=== PATIENT | female | born 1945 | race Caucasian/White ===

== ENCOUNTER → 2017-04-01 | Outpatient (CLI) | payer MEDICARE, MEDICAID | END | disposition home or self-care (01) | LOC: RADPV 09:22 | PROVIDERS: ATTEND Family Medicine | DX: Z13.820 Encounter for screening for osteoporosis (principal); M81.0 Age-related osteoporosis without current pathological fracture | CPT/HCPCS: 77080 ==

== ENCOUNTER 2019-07-19 11:07 | Inpatient (IN) | payer MEDICARE, MEDICAID ==
[~2019-07-19] VITALS: Ht 144.8 cm; Wt 70.0 kg
[2019-07-19] MEDS ORDERED: CARV12 PO (11:37)
[2019-07-19] MEDS ORDERED: CHOL100018 PO (11:37)
[2019-07-19] MEDS ORDERED: SIMV-259 PO (11:37)
[2019-07-19] MEDS ORDERED: AMIN30LI28 PO (11:37)
[2019-07-19] MEDS ORDERED: ASCO500 PO (11:37)
[2019-07-19] MEDS ORDERED: GARL200T PO (11:37)
[2019-07-19] MEDS ORDERED: HYDR25TA PO (11:37)
[2019-07-19] MEDS ORDERED: DOCU-342 PO (11:37)
[2019-07-19] MEDS ORDERED: MULT-1239 PO (11:37)
[2019-07-19] MEDS ORDERED: ZINC1CAP2 PO (11:37)
[2019-07-19] MEDS ORDERED: ALEN70TA10 PO (11:37)
[2019-07-19] MEDS ORDERED: AUD NEB (11:37)
[2019-07-19] MEDS ORDERED: POLY90PO PO (11:37)
[2019-07-19 11:52] LABS: GLUCOSE,POINT OF CARE 192 MG/DL (70-110)
[2019-07-19 12:04] LABS: HEMATOCRIT 46.5 % (36-46); HEMOGLOBIN 15.5 g/dL (12.0-16.0); MEAN CORPUSCULAR HEMOGLOBIN 29.9 pg (26.0-34.0); MEAN CORPUSCULAR HGB CONC 33.4 G/dL (31.0-37.0); MEAN CORPUSCULAR VOLUME 89 fL (80-100); PLATELET COUNT (AUTO) 161 K/uL (150-450); RED CELL DISTRIBUTION WIDTH 16.4 % (11.5-14.5)
[2019-07-19 12:11] LABS: CALCIUM, TOTAL 10.2 mg/dL (8.8-10.5); CREATININE 1.08 mg/dL (0.60-1.30)
[2019-07-19 12:19] LABS: ALBUMIN 2.8 g/dL (3.4-5.0); BILIRUBIN,TOTAL 1.3 mg/dL (0.1-1.0); TOTAL PROTEIN, SERUM 6.9 g/dL (6.4-8.2)
[2019-07-19 12:21] LABS: LACTIC ACID 1.8 mmol/L (0.4-2.0)
[2019-07-19 12:30] LABS: BAND NEUTROPHILS % (MANUAL) 14 % (0-5); BASOPHILS % (MANUAL) 1 % (0-2); LYMPHOCYTES % (MANUAL) 5 % (22-44); MONOCYTES % (MANUAL) 6 % (2-9); REACTIVE LYMPHOCYTES 1 % (0-0); SEGMENTED NEUTROPHILS % 73 % (40-70)
[2019-07-19] MEDS ORDERED: SODIUM CHLORIDE 0.9% 1,000 ML IV ONE ×2 (13:11→13:15)
[2019-07-19] MEDS ORDERED: MORPHINE SULFATE 2 MG/ML SYRINGE IVP ONE (13:30)
[2019-07-19] MEDS ORDERED: MORPHINE SULFATE 10 MG/ML SYRINGE IVP ONE (13:30)
[2019-07-19] MEDS ORDERED: ONDANSETRON HCL 4 MG/2 ML VIAL IVP ONE (13:30)
[2019-07-19] MEDS ORDERED: PIPERACILLIN/TAZO 3.375 GM/D5W 50 ML IV ONE (14:15)
[2019-07-19] MEDS ORDERED: POTASSIUM CHL 10 MEQ/WATER 50 ML IV ONE (14:15)
[2019-07-19] MEDS ORDERED: IOVERSOL 350 MG/ML 100 ML VIAL ONE (14:48)
[2019-07-19] MEDS ORDERED: SODIUM CHLORIDE 0.9% 100 ML ONE (14:48)
[2019-07-19 16:47] LABS: APPEARANCE,URINE TURBID (CLEAR); BILIRUBIN,URINE NEGATIVE (NEGATIVE); GLUCOSE, URINE (UA) NEGATIVE (NEGATIVE); KETONES,URINE NEGATIVE (NEGATIVE); LEUKOCYTE ESTERASE ,URINE LARGE (NEGATIVE); NITRATE,URINE POSITIVE (NEGATIVE); OCCULT BLOOD,URINE LARGE (NEGATIVE); PH,URINE 8.5 (5.0-8.0); PROTEIN,URINE SEE CONFIRM (NEGATIVE); UROBILINOGEN,URINE 0.2 mg/dL (<=1.0)
[2019-07-19 17:12] LABS: SULFOSALICYLIC ACID,URINE 4+ (Negative)
[2019-07-19 17:14] LABS: BACTERIA,URINE Many /HPF (None Seen); SQUAMOUS EPITHELIAL CELL,UR Many /LPF (None Seen); WBC,URINE 51-100 /HPF (0-5)
[2019-07-19 17:15] LABS: TRIPLE PHOSPHATE CRYSTAL,UR Many /LPF (None Seen)
[2019-07-19] MEDS ORDERED: ACETAMINOPHEN 325 MG TABLET PO PRN ×2 (17:30→22:15)
[2019-07-19] MEDS ORDERED: ONDANSETRON HCL 4 MG/2 ML VIAL IVP PRN ×2 (17:30→22:15)
[2019-07-19] MEDS ORDERED: FUROSEMIDE 40 MG/4 ML VIAL IVP ONE (17:30)
[2019-07-19] MEDS ORDERED: 0.9% SODIUM CHLORIDE 10 ML SYRINGE IVP PRN (17:30)
[2019-07-19 19:33] VITALS: BP 115/79
[2019-07-19] MEDS ORDERED: MORPHINE SULFATE 2 MG/ML SYRINGE IVP PRN (22:15)
[2019-07-19] MEDS ORDERED: HYDROCODONE/ACETAMINOPHEN 5-325 MG TABLET PO PRN (22:15)
[2019-07-19] MEDS ORDERED: ZOLPIDEM TARTRATE 5 MG TABLET PO PRN (22:15)
[2019-07-19] MEDS ORDERED: BISACODYL 10 MG RECTAL RECTAL SUPPOSITORY PR PRN (22:15)
[2019-07-19] MEDS ORDERED: MAGNESIUM HYDROXIDE SUSPENSION 30 ML UDCUP PO PRN (22:15)
[2019-07-19] MEDS ORDERED: SODIUM CHLORIDE 0.9% 250 ML IV ONE (23:09)
[2019-07-19] MEDS: CefTRIAXone 1 GM/DEXTROSE 50 ML IV SCH (23:18)
[2019-07-19] MEDS: HEPARIN SODIUM,PORCINE 5,000 UNITS/ML VIAL SQ SCH (23:19)
[2019-07-19 23:33] VITALS: BP 128/89
[2019-07-20] MEDS ORDERED: ALBUTEROL SULFATE 2.5 MG/0.5 ML NEB SOLUTION NEB SCH
[2019-07-20] MEDS ORDERED: IPRATROPIUM BROMIDE 0.5 MG/2.5 ML NEB SOLUTION NEB SCH
[2019-07-20 04:07] VITALS: BP 93/56
[2019-07-20 06:23] LABS: BASOPHILS % (AUTO) 0.2 % (0.0-2.0); EOSINOPHILS % (AUTO) 0.2 % (1.0-6.0); HEMATOCRIT 40.8 % (36-46); HEMOGLOBIN 13.2 g/dL (12.0-16.0); LYMPHOCYTES # (AUTO) 0.7 K/uL (1.0-4.8); LYMPHOCYTES % (AUTO) 5.1 % (22.0-44.0); MEAN CORPUSCULAR HEMOGLOBIN 29.3 pg (26.0-34.0); MEAN CORPUSCULAR HGB CONC 32.2 G/dL (31.0-37.0); MEAN CORPUSCULAR VOLUME 91 fL (80-100); MONOCYTES # (AUTO) 1.3 K/uL (0.1-1.0); NEUTROPHILS # (AUTO) 10.7 K/uL (1.8-7.7); NEUTROPHILS % (AUTO) 84.5 % (40.0-70.0); PLATELET COUNT (AUTO) 148 K/uL (150-450); RED BLOOD CELL COUNT(AUTO) 4.49 MIL/uL (4.00-5.20)
[2019-07-20 06:47] LABS: ALBUMIN 2.3 g/dL (3.4-5.0); BILIRUBIN,TOTAL 0.4 mg/dL (0.1-1.0); CALCIUM, TOTAL 9.6 mg/dL (8.8-10.5); CREATININE 1.15 mg/dL (0.60-1.30); POTASSIUM 3.3 mmol/L (3.5-5.1); TOTAL PROTEIN, SERUM 6.6 g/dL (6.4-8.2)
[2019-07-20 07:35] VITALS: BP 107/68
[2019-07-20] MEDS: HEPARIN SODIUM,PORCINE 5,000 UNITS/ML VIAL SQ SCH ×3 (08:00→23:55)
[2019-07-20] MEDS ORDERED: DOCUSATE SODIUM 100 MG CAPSULE PO SCH (09:00)
[2019-07-20] MEDS: DOCUSATE SODIUM 250 MG CAPSULE PO SCH ×2 (09:06→20:05)
[2019-07-20] MEDS: PANTOPRAZOLE SODIUM 40 MG DR TABLET PO SCH (09:08)
[2019-07-20] MEDS: HYDROCHLOROTHIAZIDE 25 MG TABLET PO SCH (09:08)
[2019-07-20] MEDS: ASCORBIC ACID 500 MG TABLET PO SCH (09:08)
[2019-07-20] MEDS: CHOLECALCIFEROL (VIT D3) 1,000 UNITS TABLET PO SCH (09:10)
[2019-07-20] MEDS ORDERED: POTASSIUM CHL 10 MEQ/WATER 50 ML IV PRN ×2 (10:30→11:30)
[2019-07-20] MEDS ORDERED: POTASSIUM CHLORIDE 20 MEQ ER TABLET PO PRN (10:30)
[2019-07-20] MEDS ORDERED: SODIUM CHLORIDE 0.45% 500 ML IV ONE (10:30)
[2019-07-20] MEDS ORDERED: POLY17PO PO (11:29)
[2019-07-20] MEDS ORDERED: [UNRECOGNIZED DRUG - CODE] PO (11:29)
[2019-07-20] MEDS: POTASSIUM CHLORIDE 10% 40 MEQ/30 ML LIQUID UDCUP PO PRN (12:06)
[2019-07-20] MEDS: AMINO ACIDS/PROTEIN HYDROLYS 30 ML TUBE PO SCH (12:08)
[2019-07-20 12:10] VITALS: BP 116/69
[2019-07-20] MEDS: INFLUENZA VIRUS VACCINE QVS 2019-20 (3YR+)/PF 60 MCG/0.5 ML SYRINGE IM ONE ×2 (12:14→17:50)
[2019-07-20 15:55] VITALS: BP 98/61
[2019-07-20 20:04] VITALS: BP 109/55
[2019-07-20] MEDS: SIMETHICONE 80 MG CHEWABLE TABLET CHEW SCH (20:05)
[2019-07-20] MEDS: SIMVASTATIN 10 MG TABLET PO SCH (20:05)
[2019-07-20] MEDS: CefTRIAXone 1 GM/DEXTROSE 50 ML IV SCH (22:22)
[2019-07-21 00:23] VITALS: BP 100/52
[2019-07-21] MEDS ORDERED: SODIUM CHLORIDE 0.9% 250 ML IV ONE (03:51)
[2019-07-21 04:14] VITALS: BP 114/58
[2019-07-21 06:25] LABS: BASOPHILS % (AUTO) 0.6 % (0.0-2.0); EOSINOPHILS % (AUTO) 2.2 % (1.0-6.0); HEMATOCRIT 37.7 % (36-46); HEMOGLOBIN 12.3 g/dL (12.0-16.0); LYMPHOCYTES # (AUTO) 0.8 K/uL (1.0-4.8); LYMPHOCYTES % (AUTO) 7.8 % (22.0-44.0); MEAN CORPUSCULAR HEMOGLOBIN 29.5 pg (26.0-34.0); MEAN CORPUSCULAR HGB CONC 32.7 G/dL (31.0-37.0); MEAN CORPUSCULAR VOLUME 90 fL (80-100); MONOCYTES % (AUTO) 10.6 % (2.0-9.0); NEUTROPHILS # (AUTO) 7.6 K/uL (1.8-7.7); NEUTROPHILS % (AUTO) 78.8 % (40.0-70.0); PLATELET COUNT (AUTO) 151 K/uL (150-450); RED BLOOD CELL COUNT(AUTO) 4.17 MIL/uL (4.00-5.20); RED CELL DISTRIBUTION WIDTH 16.8 % (11.5-14.5)
[2019-07-21 06:47] LABS: ANION GAP 6 mmol/L (8-16); CARBON DIOXIDE 31 mmol/L (22-29); CHLORIDE 107 mmol/L (98-107); CREATININE 0.84 mg/dL (0.60-1.30); GLUCOSE,RANDOM 125 mg/dL (70-110); SODIUM SERUM 144 mmol/L (136-145); UREA NITROGEN, BLOOD 22 mg/dL (7-18)
[2019-07-21 06:55] LABS: GLOMERULAR FILTR. RATE CALC > 60 mL/min (>60)
[2019-07-21 07:20] VITALS: BP 119/69
[2019-07-21] MEDS: ASCORBIC ACID 500 MG TABLET PO SCH (08:13)
[2019-07-21] MEDS: SIMETHICONE 80 MG CHEWABLE TABLET CHEW SCH ×2 (08:13→21:57)
[2019-07-21] MEDS: HYDROCHLOROTHIAZIDE 25 MG TABLET PO SCH (08:13)
[2019-07-21] MEDS: DOCUSATE SODIUM 250 MG CAPSULE PO SCH ×2 (08:14→21:57)
[2019-07-21] MEDS: HEPARIN SODIUM,PORCINE 5,000 UNITS/ML VIAL SQ SCH ×2 (08:14→16:16)
[2019-07-21] MEDS: CHOLECALCIFEROL (VIT D3) 1,000 UNITS TABLET PO SCH (08:14)
[2019-07-21] MEDS: PANTOPRAZOLE SODIUM 40 MG DR TABLET PO SCH (08:14)
[2019-07-21] MEDS: POTASSIUM CHLORIDE 10% 40 MEQ/30 ML LIQUID UDCUP PO PRN (08:14)
[2019-07-21] MEDS: AMINO ACIDS/PROTEIN HYDROLYS 30 ML TUBE PO SCH (08:20)
[2019-07-21 11:24] VITALS: BP 106/60
[2019-07-21 19:22] VITALS: BP 117/60
[2019-07-21] MEDS: SIMVASTATIN 10 MG TABLET PO SCH (21:57)
[2019-07-21] MEDS: CefTRIAXone 1 GM/DEXTROSE 50 ML IV SCH (22:05)
[2019-07-22] VITALS (7 sets, daily range): BP systolic 114–159; BP diastolic 65–81
[2019-07-22] MEDS: HEPARIN SODIUM,PORCINE 5,000 UNITS/ML VIAL SQ SCH ×4 (00:08→23:27)
[2019-07-22 06:49] LABS: BASOPHILS % (AUTO) 0.7 % (0.0-2.0); EOSINOPHILS % (AUTO) 1.9 % (1.0-6.0); HEMATOCRIT 40.8 % (36-46); HEMOGLOBIN 13.4 g/dL (12.0-16.0); LYMPHOCYTES # (AUTO) 0.8 K/uL (1.0-4.8); LYMPHOCYTES % (AUTO) 12.3 % (22.0-44.0); MEAN CORPUSCULAR HEMOGLOBIN 29.4 pg (26.0-34.0); MEAN CORPUSCULAR HGB CONC 32.9 G/dL (31.0-37.0); MEAN CORPUSCULAR VOLUME 89 fL (80-100); MONOCYTES # (AUTO) 0.7 K/uL (0.1-1.0); MONOCYTES % (AUTO) 10.7 % (2.0-9.0); NEUTROPHILS % (AUTO) 74.4 % (40.0-70.0); PLATELET COUNT (AUTO) 158 K/uL (150-450); RED BLOOD CELL COUNT(AUTO) 4.57 MIL/uL (4.00-5.20); RED CELL DISTRIBUTION WIDTH 15.9 % (11.5-14.5)
[2019-07-22 07:06] LABS: ANION GAP 6 mmol/L (8-16); CARBON DIOXIDE 33 mmol/L (22-29); CHLORIDE 102 mmol/L (98-107); CREATININE 0.62 mg/dL (0.60-1.30); GLUCOSE,RANDOM 128 mg/dL (70-110); SODIUM SERUM 141 mmol/L (136-145)
[2019-07-22 07:13] LABS: GLOMERULAR FILTR. RATE CALC > 60 mL/min (>60)
[2019-07-22 07:30] LABS: UREA NITROGEN, BLOOD 14 mg/dL (7-18)
[2019-07-22] MEDS: DOCUSATE SODIUM 250 MG CAPSULE PO SCH ×2 (08:16→20:43)
[2019-07-22] MEDS: CHOLECALCIFEROL (VIT D3) 1,000 UNITS TABLET PO SCH (08:17)
[2019-07-22] MEDS: POTASSIUM CHLORIDE 10% 40 MEQ/30 ML LIQUID UDCUP PO PRN (08:17)
[2019-07-22] MEDS: ASCORBIC ACID 500 MG TABLET PO SCH (08:17)
[2019-07-22] MEDS: PANTOPRAZOLE SODIUM 40 MG DR TABLET PO SCH (08:17)
[2019-07-22] MEDS: SIMETHICONE 80 MG CHEWABLE TABLET CHEW SCH ×2 (08:17→20:43)
[2019-07-22] MEDS: HYDROCHLOROTHIAZIDE 25 MG TABLET PO SCH (08:17)
[2019-07-22] MEDS: AMINO ACIDS/PROTEIN HYDROLYS 30 ML TUBE PO SCH (08:18)
[2019-07-22] MEDS: SULFAMETHOX/TRIMETH DS 800-160 MG/TABLET PO SCH (20:42)
[2019-07-22] MEDS: SIMVASTATIN 10 MG TABLET PO SCH (20:42)
[2019-07-22] MEDS: CefTRIAXone 1 GM/DEXTROSE 50 ML IV SCH (23:17)
[2019-07-23 05:50] VITALS: BP 114/62
[2019-07-23 06:48] LABS: BASOPHILS % (AUTO) 1.3 % (0.0-2.0); HEMATOCRIT 39.7 % (36-46); HEMOGLOBIN 12.9 g/dL (12.0-16.0); LYMPHOCYTES # (AUTO) 1.1 K/uL (1.0-4.8); LYMPHOCYTES % (AUTO) 13.4 % (22.0-44.0); MEAN CORPUSCULAR HEMOGLOBIN 29.3 pg (26.0-34.0); MEAN CORPUSCULAR HGB CONC 32.6 G/dL (31.0-37.0); MEAN CORPUSCULAR VOLUME 90 fL (80-100); MONOCYTES # (AUTO) 0.9 K/uL (0.1-1.0); NEUTROPHILS # (AUTO) 5.6 K/uL (1.8-7.7); NEUTROPHILS % (AUTO) 71.3 % (40.0-70.0); PLATELET COUNT (AUTO) 189 K/uL (150-450); RED BLOOD CELL COUNT(AUTO) 4.41 MIL/uL (4.00-5.20); RED CELL DISTRIBUTION WIDTH 16.1 % (11.5-14.5)
[2019-07-23 07:10] LABS: ANION GAP 8 mmol/L (8-16); CALCIUM, TOTAL 9.9 mg/dL (8.8-10.5); CARBON DIOXIDE 30 mmol/L (22-29); CHLORIDE 101 mmol/L (98-107); CREATININE 0.67 mg/dL (0.60-1.30); GLUCOSE,RANDOM 123 mg/dL (70-110); POTASSIUM 3.6 mmol/L (3.5-5.1); SODIUM SERUM 139 mmol/L (136-145); UREA NITROGEN, BLOOD 18 mg/dL (7-18)
[2019-07-23 07:15] LABS: GLOMERULAR FILTR. RATE CALC > 60 mL/min (>60)
[2019-07-23 07:35] VITALS: BP 124/72
[2019-07-23] MEDS: HEPARIN SODIUM,PORCINE 5,000 UNITS/ML VIAL SQ SCH ×2 (08:56→15:33)
[2019-07-23] MEDS: AMINO ACIDS/PROTEIN HYDROLYS 30 ML TUBE PO SCH (08:56)
[2019-07-23] MEDS: PANTOPRAZOLE SODIUM 40 MG DR TABLET PO SCH (08:57)
[2019-07-23] MEDS: SIMETHICONE 80 MG CHEWABLE TABLET CHEW SCH ×2 (08:57→20:28)
[2019-07-23] MEDS: DOCUSATE SODIUM 250 MG CAPSULE PO SCH ×2 (08:57→20:27)
[2019-07-23] MEDS: SULFAMETHOX/TRIMETH DS 800-160 MG/TABLET PO SCH ×2 (08:57→20:28)
[2019-07-23] MEDS: CHOLECALCIFEROL (VIT D3) 1,000 UNITS TABLET PO SCH (08:57)
[2019-07-23] MEDS: HYDROCHLOROTHIAZIDE 25 MG TABLET PO SCH (08:58)
[2019-07-23] MEDS: ASCORBIC ACID 500 MG TABLET PO SCH (08:58)
[2019-07-23 11:14] VITALS: BP 122/65
[2019-07-23 15:52] VITALS: BP 129/81
[2019-07-23 19:30] VITALS: BP 126/77
[2019-07-23] MEDS: SIMVASTATIN 10 MG TABLET PO SCH (20:28)
[2019-07-23] MEDS: CeFAZolin 1 GM/DEXTROSE 50 ML IV SCH (22:14)
[2019-07-23 23:46] VITALS: BP 145/77
[2019-07-24] MEDS: HEPARIN SODIUM,PORCINE 5,000 UNITS/ML VIAL SQ SCH ×3 (00:26→16:16)
[2019-07-24 04:55] VITALS: BP 143/73
[2019-07-24] MEDS: CeFAZolin 1 GM/DEXTROSE 50 ML IV SCH ×3 (05:51→22:27)
[2019-07-24 06:18] LABS: EOSINOPHILS % (AUTO) 3.8 % (1.0-6.0); HEMATOCRIT 42.7 % (36-46); HEMOGLOBIN 14.4 g/dL (12.0-16.0); LYMPHOCYTES # (AUTO) 1.1 K/uL (1.0-4.8); MEAN CORPUSCULAR HGB CONC 33.8 G/dL (31.0-37.0); MEAN CORPUSCULAR VOLUME 89 fL (80-100); MONOCYTES % (AUTO) 11.3 % (2.0-9.0); NEUTROPHILS # (AUTO) 6.6 K/uL (1.8-7.7); NEUTROPHILS % (AUTO) 71.9 % (40.0-70.0); PLATELET COUNT (AUTO) 206 K/uL (150-450); RED BLOOD CELL COUNT(AUTO) 4.81 MIL/uL (4.00-5.20); RED CELL DISTRIBUTION WIDTH 16.5 % (11.5-14.5)
[2019-07-24 06:37] LABS: ANION GAP 7 mmol/L (8-16); CALCIUM, TOTAL 10.9 mg/dL (8.8-10.5); CARBON DIOXIDE 30 mmol/L (22-29); CHLORIDE 99 mmol/L (98-107); CREATININE 0.78 mg/dL (0.60-1.30); GLUCOSE,RANDOM 89 mg/dL (70-110); SODIUM SERUM 136 mmol/L (136-145); UREA NITROGEN, BLOOD 20 mg/dL (7-18)
[2019-07-24 06:50] LABS: GLOMERULAR FILTR. RATE CALC > 60 mL/min (>60)
[2019-07-24 07:57] VITALS: BP 142/63
[2019-07-24] MEDS: AMINO ACIDS/PROTEIN HYDROLYS 30 ML TUBE PO SCH ×2 (08:00→08:13)
[2019-07-24] MEDS: ASCORBIC ACID 500 MG TABLET PO SCH (08:10)
[2019-07-24] MEDS: HYDROCHLOROTHIAZIDE 25 MG TABLET PO SCH (08:10)
[2019-07-24] MEDS: PANTOPRAZOLE SODIUM 40 MG DR TABLET PO SCH (08:10)
[2019-07-24] MEDS: SULFAMETHOX/TRIMETH DS 800-160 MG/TABLET PO SCH ×2 (08:10→21:20)
[2019-07-24] MEDS: SIMETHICONE 80 MG CHEWABLE TABLET CHEW SCH ×2 (08:10→21:20)
[2019-07-24] MEDS: CHOLECALCIFEROL (VIT D3) 1,000 UNITS TABLET PO SCH (08:11)
[2019-07-24] MEDS: DOCUSATE SODIUM 250 MG CAPSULE PO SCH ×2 (08:13→21:00)
[2019-07-24 11:17] VITALS: BP 119/60
[2019-07-24 15:23] VITALS: BP 139/66
[2019-07-24 20:48] VITALS: BP 140/68
[2019-07-24] MEDS: SIMVASTATIN 10 MG TABLET PO SCH (21:20)
[2019-07-25] MEDS: HEPARIN SODIUM,PORCINE 5,000 UNITS/ML VIAL SQ SCH ×3 (00:14→16:18)
[2019-07-25 00:36] VITALS: BP 141/70
[2019-07-25 05:28] VITALS: BP 144/75
[2019-07-25] MEDS: CeFAZolin 1 GM/DEXTROSE 50 ML IV SCH ×3 (05:32→21:06)
[2019-07-25] MEDS ORDERED: ALENDRONATE SODIUM 70 MG TABLET PO SCH (06:30)
[2019-07-25] MEDS: AMINO ACIDS/PROTEIN HYDROLYS 30 ML TUBE PO SCH (08:00)
[2019-07-25 08:28] VITALS: BP 141/85
[2019-07-25 08:54] LABS: BASOPHILS % (AUTO) 1.1 % (0.0-2.0); EOSINOPHILS % (AUTO) 3.1 % (1.0-6.0); HEMATOCRIT 44.5 % (36-46); HEMOGLOBIN 15.1 g/dL (12.0-16.0); LYMPHOCYTES # (AUTO) 1.3 K/uL (1.0-4.8); LYMPHOCYTES % (AUTO) 12.3 % (22.0-44.0); MEAN CORPUSCULAR HEMOGLOBIN 30.2 pg (26.0-34.0); MEAN CORPUSCULAR VOLUME 89 fL (80-100); MONOCYTES # (AUTO) 0.8 K/uL (0.1-1.0); MONOCYTES % (AUTO) 7.9 % (2.0-9.0); NEUTROPHILS # (AUTO) 7.9 K/uL (1.8-7.7); NEUTROPHILS % (AUTO) 75.6 % (40.0-70.0); PLATELET COUNT (AUTO) 244 K/uL (150-450); RED BLOOD CELL COUNT(AUTO) 5.02 MIL/uL (4.00-5.20); RED CELL DISTRIBUTION WIDTH 16.2 % (11.5-14.5)
[2019-07-25] MEDS: DOCUSATE SODIUM 250 MG CAPSULE PO SCH ×2 (09:00→20:53)
[2019-07-25] MEDS: SULFAMETHOX/TRIMETH DS 800-160 MG/TABLET PO SCH ×2 (09:03→20:53)
[2019-07-25] MEDS: SIMETHICONE 80 MG CHEWABLE TABLET CHEW SCH ×2 (09:03→20:53)
[2019-07-25] MEDS: HYDROCHLOROTHIAZIDE 25 MG TABLET PO SCH (09:03)
[2019-07-25] MEDS: ASCORBIC ACID 500 MG TABLET PO SCH (09:03)
[2019-07-25] MEDS: PANTOPRAZOLE SODIUM 40 MG DR TABLET PO SCH (09:03)
[2019-07-25] MEDS: CHOLECALCIFEROL (VIT D3) 1,000 UNITS TABLET PO SCH (09:03)
[2019-07-25 09:13] LABS: ANION GAP 7 mmol/L (8-16); CALCIUM, TOTAL 11.3 mg/dL (8.8-10.5); CARBON DIOXIDE 29 mmol/L (22-29); CHLORIDE 97 mmol/L (98-107); GLUCOSE,RANDOM 109 mg/dL (70-110); POTASSIUM 4.3 mmol/L (3.5-5.1); SODIUM SERUM 133 mmol/L (136-145); UREA NITROGEN, BLOOD 17 mg/dL (7-18)
[2019-07-25 09:14] LABS: GLOMERULAR FILTR. RATE CALC > 60 mL/min (>60)
[2019-07-25] MEDS ORDERED: SODIUM CHLORIDE 0.9% 250 ML IV ONE (09:23)
[2019-07-25] MEDS ORDERED: SODIUM CHLORIDE 0.9% 1,000 ML IV ONE (11:21)
[2019-07-25] MEDS ORDERED: SODIUM CHLORIDE 0.9% 1,000 ML IV SCH (11:30)
[2019-07-25 11:42] VITALS: BP 129/66
[2019-07-25 16:12] VITALS: BP 123/77
[2019-07-25] MEDS: SIMVASTATIN 10 MG TABLET PO SCH (20:53)
[2019-07-25 20:55] VITALS: BP 119/62
[2019-07-26] MEDS: HEPARIN SODIUM,PORCINE 5,000 UNITS/ML VIAL SQ SCH ×2 (00:03→08:00)
[2019-07-26 00:12] VITALS: BP 125/60
[2019-07-26 05:24] VITALS: BP 107/69
[2019-07-26] MEDS: CeFAZolin 1 GM/DEXTROSE 50 ML IV SCH ×2 (05:25→13:52)
[2019-07-26 07:19] VITALS: BP 116/68
[2019-07-26 07:50] LABS: BASOPHILS % (AUTO) 0.8 % (0.0-2.0); EOSINOPHILS % (AUTO) 4.3 % (1.0-6.0); HEMATOCRIT 44.4 % (36-46); HEMOGLOBIN 14.6 g/dL (12.0-16.0); LYMPHOCYTES # (AUTO) 1.4 K/uL (1.0-4.8); LYMPHOCYTES % (AUTO) 14.1 % (22.0-44.0); MEAN CORPUSCULAR HEMOGLOBIN 29.5 pg (26.0-34.0); MEAN CORPUSCULAR HGB CONC 32.9 G/dL (31.0-37.0); MEAN CORPUSCULAR VOLUME 90 fL (80-100); MONOCYTES # (AUTO) 0.9 K/uL (0.1-1.0); MONOCYTES % (AUTO) 9.1 % (2.0-9.0); NEUTROPHILS # (AUTO) 6.9 K/uL (1.8-7.7); NEUTROPHILS % (AUTO) 71.7 % (40.0-70.0); PLATELET COUNT (AUTO) 254 K/uL (150-450); RED BLOOD CELL COUNT(AUTO) 4.95 MIL/uL (4.00-5.20); RED CELL DISTRIBUTION WIDTH 16.4 % (11.5-14.5)
[2019-07-26] MEDS: AMINO ACIDS/PROTEIN HYDROLYS 30 ML TUBE PO SCH ×2 (08:00→08:32)
[2019-07-26 08:08] LABS: ANION GAP 9 mmol/L (8-16); CALCIUM, TOTAL 9.9 mg/dL (8.8-10.5); CARBON DIOXIDE 26 mmol/L (22-29); CHLORIDE 103 mmol/L (98-107); GLUCOSE,RANDOM 99 mg/dL (70-110); POTASSIUM 4.4 mmol/L (3.5-5.1); SODIUM SERUM 138 mmol/L (136-145); UREA NITROGEN, BLOOD 20 mg/dL (7-18)
[2019-07-26 08:11] LABS: GLOMERULAR FILTR. RATE CALC > 60 mL/min (>60)
[2019-07-26] MEDS: CHOLECALCIFEROL (VIT D3) 1,000 UNITS TABLET PO SCH (08:32)
[2019-07-26] MEDS: DOCUSATE SODIUM 250 MG CAPSULE PO SCH (08:32)
[2019-07-26] MEDS: SULFAMETHOX/TRIMETH DS 800-160 MG/TABLET PO SCH (08:32)
[2019-07-26] MEDS: PANTOPRAZOLE SODIUM 40 MG DR TABLET PO SCH (08:32)
[2019-07-26] MEDS: SIMETHICONE 80 MG CHEWABLE TABLET CHEW SCH (08:32)
[2019-07-26] MEDS: ASCORBIC ACID 500 MG TABLET PO SCH (08:32)
[2019-07-26 11:07] VITALS: BP 121/67
[2019-07-26] MEDS ORDERED: BACTDSB PO (13:31)
[2019-07-26 15:54] VITALS: BP 121/64
== END 2019-07-26 16:45 | DRG 720 ==
LOC: EMS 11:07 → 5S 18:43
PROVIDERS: ADMIT Internal Medicine; ATTEND Internal Medicine
DX: A41.9 Sepsis, unspecified organism (principal); J96.01 Acute respiratory failure with hypoxia; E44.0 Moderate protein-calorie malnutrition; E11.65 Type 2 diabetes mellitus with hyperglycemia; F72 Severe intellectual disabilities; E86.0 Dehydration; D64.9 Anemia, unspecified; E55.9 Vitamin D deficiency, unspecified; E87.6 Hypokalemia; I10 Essential (primary) hypertension; G80.9 Cerebral palsy, unspecified; J45.909 Unspecified asthma, uncomplicated; B96.89 Other specified bacterial agents as the cause of diseases classified elsewhere; B96.4 Proteus (mirabilis) (morganii) as the cause of diseases classified elsewhere; E78.00 Pure hypercholesterolemia, unspecified; N13.6 Pyonephrosis; N20.2 Calculus of kidney with calculus of ureter; Z79.899 Other long term (current) drug therapy; Z23 Encounter for immunization; Z68.33 Body mass index [BMI] 33.0-33.9, adult
CPT/HCPCS: 74177; 76700; 83605; 84132; 87040; 87086; 87205; 90686; 93005; 96365; 96375; J0690; J0696; J1644; J1940; J2270; J2405; J2543; J3480; J7030; J7050